=== PATIENT | female | born 1960 | race Caucasian/White ===

== ENCOUNTER 2016-11-15 21:30 | Emergency (ER) | payer OTHER ==
[~2016-11-15] VITALS: Ht 165.1 cm; Wt 72.7 kg
[~2016-11-15 21:30] MED LIST: FISH1CAP22 PO; [UNRECOGNIZED DRUG - REMARK]
[2016-11-15] MEDS ORDERED: CALC-879 PO (21:39)
[2016-11-15 21:55] VITALS: BP 131/74
== END 2016-11-15 23:24 | disposition home or self-care (01) ==
LOC: EMS 21:32
DX: S92.411A Displaced fracture of proximal phalanx of right great toe, initial encounter for closed fracture (principal); E78.00 Pure hypercholesterolemia, unspecified; W22.8XXA Striking against or struck by other objects, initial encounter; Y93.D3 Activity, furniture building and finishing; Y92.89 Other specified places as the place of occurrence of the external cause; Y99.8 Other external cause status
CPT/HCPCS: 99284